=== PATIENT | female | born 1960 | race Two or more races ===

== ENCOUNTER 2021-11-29 16:30 | Emergency (ER) | payer BC, OTHER ==
[~2021-11-29] VITALS: Ht 157.5 cm; Wt 80.7 kg
[2021-11-29 17:12] LABS: Basophils # (auto) 0.1 10 ^3/uL (0-0.2); Basophils % (auto) 1.7 % (0.0-2.0); Eosinophils # (auto) 0.3 10 ^3/uL (0-0.8); Hematocrit 38.5 % (36.0-46.0); Hemoglobin 13.4 g/dL (12.2-16.2); Lymphocytes # (auto) 1.8 10 ^3/uL (0.4-5.4); Lymphocytes % (auto) 36.7 % (10.0-50.0); Mean Corpuscular Hemoglobin 32.9 pg (28.0-32.0); Mean Corpuscular Hgb Conc. 34.8 g/dL (32.0-36.0); Mean Corpuscular Volume 94.5 fL (80.0-100.0); Monocytes # (auto) 0.3 10 ^3/uL (0-1.3); Monocytes % (auto) 6.7 % (0.0-12.0); Neutrophils # (auto) 2.4 10 ^3/uL (1.6-8.6); Neutrophils % (auto) 48.9 % (37.0-80.0); Nucleated Red Blood Cells % 0.2 %; Red Blood Cells 4.08 10^6/uL (4.0-5.20); Red Cell Distribution Width 12.5 % (11.8-14.3)
[2021-11-29 17:27] LABS: Albumin 3.6 g/dL (3.4-5.0); BUN/Creatinine Ratio 30.7; Calcium 8.8 mg/dL (8.5-10.1)
[2021-11-29 17:30] LABS: Bilirubin, Total 0.2 mg/dL (0.2-1.0)
[2021-11-29] MEDS ORDERED: IOHEXOL 350 MG/ML 100ML IJ ONE (19:38)
[2021-11-29 19:45] VITALS: BP 156/86
[2021-11-29] MEDS ORDERED: PRED20TA2 PO (20:32)
[2021-11-29] MEDS ORDERED: GLYC1DRO OP (20:32)
[2021-11-29] MEDS ORDERED: ACYC-163 PO (20:32)
[2021-11-29] MEDS ORDERED: ARTIOIN OP (20:32)
== END 2021-11-29 20:39 | disposition left against medical advice (07) ==
LOC: ER 16:30
DX: G51.0 Bell's palsy (principal); R94.31 Abnormal electrocardiogram [ECG] [EKG]
CPT/HCPCS: 36415; 70450; 80053; 84484; 85025; 93005